=== PATIENT | female | born 1995 | race Caucasian/White ===

== ENCOUNTER 2021-07-18 09:09 | Emergency (ER) | payer OTHER ==
--- NOTE | 2021-07-18 09:40 | ERPHSYRPT ---
- History of Present Illness Time Seen by Provider: 07/18/21 09:27 Source: patient Exam Limitations: no limitations Physician History: The patient is a 26-year-old currently 6 weeks estimated gestational age with an LMP reportedly on June 01, 2021 and an estimated due date on March 09, 2022 presents with a chief complaint of vaginal bleeding. Onset reported this morning. She states that she wiped after using the bathroom and noticed that she had blood on the toilet paper while wiping. She has not had to use any pads or tampons to control the bleeding. She denies any abdominal pain, pelvic pain or cramping, purulent vaginal discharge, dysuria, increased urinary frequency or hesitancy, back pain, weakness or dizziness or syncope. She currently is on progesterone supplementation that was started this past Sunday given her past miscarriages x2. This is started by her SERVICE DEPARTMENT MANAGER doctor Samson. She called his clinic this morning and was told to come to the emergency department for further evaluation. Associated Symptoms: No nausea, No vomiting, No abdominal pain Allergies/Adverse Reactions: No Known Drug Allergies Allergy (Unverified 07/18/21 09:34) Home Medications: Levothyroxine Sodium 25 Mcg [Synthroid 25 Mcg] 1 tab PO DAILY 07/18/21 [History] - Review of Systems Constitutional: No Fever, No Chills Respiratory: No Symptoms Cardiac: No Symptoms Abdominal/Gastrointestinal: No Abdominal Pain, No Nausea, No Vomiting, No Diarrhea, No Hematemesis, No Hematochezia Genitourinary Symptoms: Vaginal Bleeding, No Dysuria, No Frequency, No Incontinence, No Urgency, No Urinary Retention, No Flank Pain, No Vaginal Discharge, No Vaginal Itching Musculoskeletal: No Symptoms Skin: No Symptoms Neurological: No Symptoms Psychological: No Symptoms Endocrine: No Symptoms Hematologic/Lymphatic: No Symptoms Immunological/Allergic: No Symptoms All Other Systems: Reviewed and Negative - Past Medical History Pertinent Past Medical History: Yes History: Other ( currently 6 weeks EGA) - Nursing Vital Signs Nursing Vital Signs: Initial Vital Signs Temperature 97.9 F 07/18/21 09:36 Pulse Rate 86 07/18/21 09:36 Respiratory Rate 18 07/18/21 09:36 Blood Pressure 131/68 07/18/21 09:36 O2 Sat by Pulse Oximetry 100 07/18/21 09:36 Pain Scale Pain Intensity 0 - Physical Exam General Appearance: no apparent distress, alert, obese Eye Exam: No scleral icterus Neck Exam: supple Respiratory Exam: normal breath sounds, chest tenderness, No lungs clear, No respiratory distress, No diminished breath sounds Cardiovascular Exam: regular rate/rhythm, normal heart sounds, No murmur, No fr iction rub, No gallop, No capillary refill <2 sec Gastrointestinal/Abdomen Exam: soft, No tenderness, No distention, No mass, No guarding, No rebound Pelvic Exam: deferred Rectal Exam: deferred Back Exam: normal inspection Extremity Exam: normal inspection Neurologic Exam: alert, oriented x 3, cooperative Skin Exam: normal color, warm, dry, No rash, No petechiae, No jaundice SpO2 Interpretation: normal O2 Delivery: Room Air - Course Nursing assessment & vital signs reviewed: Yes - Radiology Ultrasound Exam OB Ultrasound: Other (Single IUP with a single pole. heart rate 118 bpmPrevious tiny subchorionic hemorrhage appears smaller today measuring 1 x 2 x 3 mm. Cervix remains closed measuring 4 cm in length. Right and left ovaries unremarkable.) Ordered Tests: Active Orders 24 hr Category Date Time Status OB FOLLOW UP PER FETUS [US] Stat Exams 07/18/21 09:28 Completed BMP Stat Lab 07/18/21 09:45 Completed CULTURE,URINE Stat Lab 07/18/21 09:40 Received HCG, Quantitative (Inhouse) Stat Lab 07/18/21 09:00 Completed HCG,QUALITATIVE URINE Stat Lab 07/18/21 09:40 Completed UA W/RFX UR CULTURE Stat Lab 07/18/21 09:40 Completed Lab/Rad Data: Laboratory Result Diagrams 07/18/21 09:45 Laboratory Results 07/18/21 07/18/21 07/18/21 Range/Units 09:45 09:45 09:40 Sodium 138 (137-145) mmol/L Potassium 4.0 (3.5-5.1) mmol/L Chloride 101 (98-107) mmol/L Carbon Dioxide 26 (22-30) mmol/L Anion Gap 14.2 (5-15) MEQ/L BUN 8 (7-17) mg/dL Creatinine 0.58 (0.52-1.04) mg/dL Estimated GFR > 60.0 ML/MIN Glucose 118 H (74-106) mg/dL Calcium 9.4 (8.4-10.2) mg/dL Beta HCG, Quant mIU/ml Urine Color (YELLOW) Urine Appearance (CLEAR) Urine pH (5-6) Ur Specific [place] (1.005-1.025) Urine Protein (Negative) Urine Ketones (NEGATIVE) Urine Blood (0-5) Blair/ul Urine Nitrite (NEGATIVE) Urine Bilirubin (NEGATIVE) Urine Urobilinogen (0-1) mg/dL Ur Leukocyte Esterase (NEGATIVE) Urine WBC (Auto) (0-5) /HPF Urine RBC (Auto) (0-2) /HPF U Epithel Cells (Auto) (FEW) /HPF Urine Bacteria (Auto) (NEGATIVE) /HPF Urine Mucus (Auto) (NEGATIVE) /HPF Urine Culture Reflexed (NO) Urine Glucose (NEGATIVE) mg/dL Urine HCG, Qual POSITIVE (Negative) ABO Group O Rh Factor POSITIVE Antibody Screen NEGATIVE (NEGATIVE) 07/18/21 07/18/21 Range/Units 09:40 09:00 Sodium (137-145) mmol/L Potassium (3.5-5.1) mmol/L Chloride (98-107) mmol/L Carbon Dioxide (22-30) mmol/L Anion Gap (5-15) MEQ/L BUN (7-17) mg/dL Creatinine (0.52-1.04) mg/dL Estimated GFR ML/MIN Glucose (74-106) mg/dL Calcium (8.4-10.2) mg/dL Beta HCG, Quant 26371 mIU/ml Urine Color YELLOW (YELLOW) Urine Appearance SLIGHTLY CLOUDY (CLEAR) Urine pH 6.0 (5-6) Ur Specific [place] 1.023 (1.005-1.025) Urine Protein NEGATIVE (Negative) Urine Ketones NEGATIVE (NEGATIVE) Urine Blood LARGE (0-5) Blair/ul Urine Nitrite NEGATIVE (NEGATIVE) Urine Bilirubin NEGATIVE (NEGATIVE) Urine Urobilinogen NEGATIVE (0-1) mg/dL Ur Leukocyte Esterase NEGATIVE (NEGATIVE) Urine WBC (Auto) 0-2 (0-5) /HPF Urine RBC (Auto) 6-10 (0-2) /HPF U Epithel Cells (Auto) FEW (FEW) /HPF Urine Bacteria (Auto) FEW (NEGATIVE) /HPF Urine Mucus (Auto) SLIGHT (NEGATIVE) /HPF Urine Culture Reflexed YES (NO) Urine Glucose NEGATIVE (NEGATIVE) mg/dL Urine HCG, Qual (Negative) ABO Group Rh Factor Antibody Screen (NEGATIVE) - Progress Progress: improved Progress Note: 07/18/21 11:02 The patient was reassessed to find that she was in no obvious distress. She had no pain and no active bleeding at this time. I updated her with her work-up results and need to follow-up with Dr. Stark. She apparently has an appointment scheduled for July 21, 2021. ED return precautions for vaginal bleeding were given. Also, I attempted to contact Dr. Davies twice at his clinic however we can only get a busy signal 07/18/21 11:28 Samson called back and agrees with workup and d/c plan Discussed with : Deborah Counseled pt/family regarding: lab results, diagnosis, need for follow-up, rad results - Departure Departure Disposition: Home Clinical Impression: Vaginal bleeding during Condition: Stable Critical Care Time: No Referrals: BETTY ESQUIVEL NP [Primary Care Provider] - Instructions: Bleeding With (DC) Additional Instructions: Please take your medications as instructed or prescribed by your SERVICE DEPARTMENT MANAGER. Please follow-up with your SERVICE DEPARTMENT MANAGER for further evaluation and management.
[2021-07-18 10:02] LABS: Appearance SLIGHTLY CLOUDY (CLEAR); Bilirubin NEGATIVE (NEGATIVE); Blood LARGE Ery/ul (0-5); Glucose NEGATIVE (NEGATIVE); Ketones NEGATIVE (NEGATIVE); Leukocyte Esterase NEGATIVE (NEGATIVE); Nitrite NEGATIVE (NEGATIVE); Protein,Urine Dip NEGATIVE (Negative); Specific Gravity 1.023 (1.005-1.025); Urobilinogen NEGATIVE mg/dL (0-1)
[2021-07-18 10:06] LABS: ANION GAP 14.2 MEQ/L (5-15); BLOOD UREA NITROGEN 8 mg/dL (7-17); CHLORIDE 101 mmol/L (98-107); Calcium 9.4 mg/dL (8.4-10.2); Carbon Dioxide 26 mmol/L (22-30); Creatinine 1 0.58 mg/dL (0.52-1.04); EST GLOMERULAR FILTRATION RATE > 60.0 ML/MIN; Glucose 118 mg/dL (74-106); SODIUM 138 mmol/L (137-145)
--- NOTE | 2021-07-18 10:20 | XRAY ---
Indication: Spotting. Two-dimensional transvaginal early OB ultrasound performed. Comparison: July 13, 2021. Again single intrauterine with a single pole. Mean crown-rump length measures 0.75 cm corresponding to 6 weeks 5 days. heart rate 118 BPM. Previous tiny subchronic hemorrhage appears smaller today measuring 1 x 2 x 3 mm. Cervix remains closed measuring 4 cm in length. Tiny cul-de-sac fluid. Left and right ovary sonographically unremarkable. Impression: Again single viable intrauterine with mean gestational age 6 weeks 5 days. Normal progression of . Previous tiny subchorionic hemorrhage appears smaller.
[2021-07-18 10:21] LABS: Bacteria FEW /HPF (NEGATIVE); Epithelial Cells FEW /HPF (FEW); Mucus SLIGHT /HPF (NEGATIVE); WBC 0-2 /HPF (0-5)
[2021-07-18 10:36] LABS: ABO TYPING O; Antibody Screen NEGATIVE (NEGATIVE); RH TYPING POSITIVE
[2021-07-18 11:03] VITALS: O2SAT 98
[2021-07-18 11:19] VITALS: BP 103/70; PULSE 77
== END 2021-07-18 11:16 | disposition home or self-care (01) ==
LOC: ED 09:09
DX: O20.9 Hemorrhage in early pregnancy, unspecified (principal)
CPT/HCPCS: 36415; 76816; 80048; 81001; 84702; 84703; 86850; 86900; 86901; 87086; 99283

== ENCOUNTER 2021-08-31 22:03 | Emergency (ER) | payer OTHER ==
[2021-08-31 22:28] VITALS: O2SAT 98
[2021-08-31 22:51] LABS: Absolute Neutrophil Ct (ANC) 5.38 (1.4-6.9); BASOPHIL % 0.5 % (0.0-0.4); Basophil (Absolute #) 0.04 (0-0.4); Eosinophil (Absolute #) 0.17 (0-0.5); Hematocrit 39.3 % (35-47); Hemoglobin 13.2 gm/dl (12.0-16.0); Lymphocyte (Absolute #) 2.38 (1.0-4.6); Lymphocytes % 27.5 % (24.0-44.0); Mean Cell Volume 93.8 fl (78-100); Mean Corpuscular Hemoglobin 31.5 pg (26-32); Mean Corpuscular Hgb Concent. 33.6 g/dl (32-36); Mean Platelet Volume 10.2 fl (7.5-11.0); Monocyte (Absolute #) 0.68 (0.0-1.3); Monocytes % 7.9 % (0.0-12.0); Neutrophil % 62.1 % (36.0-66.0); Platelet Count 281 K/mm3 (150-450); Red Blood Count 4.19 M/mm3 (4.1-5.4); Red Cell Distribution Width 11.7 % (11.5-14.0); White Blood Count 8.7 K/mm3 (4.0-10.5)
[2021-08-31 22:57] LABS: Appearance CLEAR (CLEAR); Bacteria NONE SEEN /HPF (NEGATIVE); Bilirubin NEGATIVE (NEGATIVE); Blood NEGATIVE Ery/ul (0-5); Glucose NEGATIVE (NEGATIVE); Ketones NEGATIVE (NEGATIVE); Leukocyte Esterase NEGATIVE (NEGATIVE); Mucus SLIGHT /HPF (NEGATIVE); Nitrite NEGATIVE (NEGATIVE); Protein,Urine Dip NEGATIVE (Negative); Specific Gravity 1.015 (1.005-1.025); Urobilinogen NEGATIVE mg/dL (0-1)
[2021-08-31 23:03] LABS: ALBUMIN 4.1 g/dL (3.5-5.0); ALKALINE PHOSPHATASE 43 U/L (38-126); BLOOD UREA NITROGEN 11 mg/dL (7-17); CHLORIDE 105 mmol/L (98-107); Calcium 9.1 mg/dL (8.4-10.2); Carbon Dioxide 22 mmol/L (22-30); Creatinine 1 0.58 mg/dL (0.52-1.04); EST GLOMERULAR FILTRATION RATE > 60.0 ML/MIN; Glucose 85 mg/dL (74-106); Potassium 4.6 mmol/L (3.5-5.1); SGOT/AST 20 U/L (14-36); SGPT/ALT 33 U/L (0-35); SODIUM 137 mmol/L (137-145); Total Protein 6.7 g/dL (6.3-8.2)
[2021-08-31 23:06] VITALS: BP 130/66; PULSE 81
--- NOTE | 2021-08-31 23:06 | ERPHSYRPT ---
- History of Present Illness Time Seen by Provider: 08/31/21 22:30 Source: patient Exam Limitations: no limitations Patient Subjective Stated Complaint: " I noticed some blood on the toliet paper when I wipe after peeing, I am 13 weeks and high risk so my OB advised me to come to the ER if I experienced bleeding. I had two previous miscarriages before. Triage Nursing Assessment: Pt presents to ER with complaints of vaginal bleeding that began today at 1200. Pt states she is 13 weeks gestation . Pt states has been 3 times, 2 resulting in miscarriage and this being her 3rd . Pt states that she noticed some mild blood after wiping following urination today. Pt states blood was light pink in color. Pt is alert and oriented x3. Pt skin is pink, warm, and dry. Pt respirations are unlabored at this time. Pt denies any pain. Pt denies nausea, vomiting, or diarrhea. Pt does state she had intercourse this morning, denies any pain or bleeding during or following that. Physician History: Patient is a 26-year-old female currently 13 weeks presents to our ED with complaints of vaginal bleeding. Patient states her MEDICAL SOCIAL WORKER physician advised her to come to our ED if she experiences vaginal bleeding. Patient states that she has had 2 previous miscarriages. 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 She was at home wiped and observe the blood-tinged toilet paper. No active bleeding no cramping. No abdominal pain. No nausea or vomiting. No trauma. No fever. Symptoms are mild to moderate in intensity. No specific worsening improving factors. Patient is otherwise healthy. She is not sure why she had previous miscarriages. Patient voices no other complaints or concerns at this time. Timing/Duration: today Severity: mild Modifying Factors: Improves With: nothing Associated Symptoms: denies symptoms Allergies/Adverse Reactions: No Known Drug Allergies Allergy (Verified 08/31/21 22:28) Home Medications: Levothyroxine Sodium 25 Mcg [Synthroid 25 Mcg] 1 tab PO DAILY 07/18/21 [History] Aspirin 81 gm Chew [Baby Aspirin 81 mg Chew] 2 tab PO DAILY 08/31/21 [History] Pnv No.95/Ferrous Fum/Folic AC [ Caplet] 2 cap PO DAILY 08/31/21 [History] Hx Tetanus, Diphtheria Vaccination/Date Given: Yes Hx Influenza Vaccination/Date Given: Yes Hx Pneumococcal Vaccination/Date Given: No Immunizations Up to Date: Yes Travel Risk - International Travel Have you traveled outside of the country in past 3 weeks: No - Coronavirus Screening Are you exhibiting any of the following symptoms?: No Close contact with a COVID-19 positive Pt in past 14-21 Days: No - Vaccine Status Have you recieved a Covid-19 vaccination: No - Review of Systems Constitutional: No Symptoms, No Fever, No Chills Eyes: No Symptoms Ears, Nose, & Throat: No Symptoms Respiratory: No Symptoms, No Cough, No Dyspnea Cardiac: No Symptoms, No Chest Pain, No Edema, No Syncope Abdominal/Gastrointestinal: No Symptoms, No Abdominal Pain, No Nausea, No Vomiting, No Diarrhea Genitourinary Symptoms: No Symptoms, No Dysuria Musculoskeletal: No Symptoms, No Back Pain, No Neck Pain Skin: No Symptoms, No Rash Neurological: No Symptoms, No Dizziness, No Focal Weakness, No Sensory Changes Psychological: No Symptoms Endocrine: No Symptoms Hematologic/Lymphatic: No Symptoms Immunological/Allergic: No Symptoms All Other Systems: Reviewed and Negative - Past Medical History Pertinent Past Medical History: Yes Neurological History: No Pertinent History ENT History: No Pertinent History Cardiac History: No Pertinent History Respiratory History: No Pertinent History Musculoskeletal History: No Pertinent History GI Medical History: No Pertinent History History: Other Psycho-Social History: No Pertinent History Female Reproductive Disorders: No Pertinent History Other Medical History: - Past Surgical History Past Surgical History: Yes Neuro Surgical History: No Pertinent History Cardiac: No Pertinent History Respiratory: No Pertinent History Gastrointestinal: No Pertinent History Genitourinary: No Pertinent History Musculoskeletal: No Pertinent History Female Surgical History: Dilation & Curettage - Social History Smoking Status: Never smoker Exposure to second hand smoke: No Drug Use: none Patient Lives Alone: No - Female History Hx Last Menstrual Period: 06/01/2021 Hx Now: Yes Expected Date of Delivery: 03/08/22 Gestational Age: 13 weeks - Nursing Vital Signs Nursing Vital Signs: Initial Vital Signs Temperature 97.7 F 08/31/21 22:19 Pulse Rate 91 H 08/31/21 22:19 Respiratory Rate 16 08/31/21 22:19 Blood Pressure 131/88 08/31/21 22:19 O2 Sat by Pulse Oximetry 98 12/15/21 22:19 Pain Scale Pain Intensity 0 - Physical Exam General Appearance: no apparent distress, alert Eye Exam: PERRL/EOMI, eyes nml inspection Ears, Nose, Throat Exam: normal ENT inspection, TMs normal, pharynx normal, moist mucous membranes Neck Exam: normal inspection, non-tender, supple, full range of motion Respiratory Exam: normal breath sounds, lungs clear, airway intact, No respiratory distress, No accessory muscle use, No crackles/rales, No wheezing Cardiovascular Exam: regular rate/rhythm, normal heart sounds, normal peripheral pulses Gastrointestinal/Abdomen Exam: soft, normal bowel sounds, No tenderness, No mass Pelvic Exam: normal external exam, vaginal discharge (Scant white vaginal discharge.), other (Closed cervical os), No adnexal mass, No cervical motion tenderness, No vaginal bleeding, No uterine tenderness Back Exam: normal inspection, normal range of motion, No CVA tenderness, No vertebral tenderness Extremity Exam: normal inspection, normal range of motion, pelvis stable Neurologic Exam: alert, oriented x 3, cooperative, normal mood/affect, sensation nml, No motor deficits Skin Exam: normal color, warm, dry, No rash Lymphatic Exam: No adenopathy SpO2 Interpretation: normal SpO2: 98 O2 Delivery: Room Air - Course Nursing assessment & vital signs reviewed: Yes - Radiology Ultrasound Exam OB Ultrasound: discussed w/radiologist (Per table cut off saw operator heart rate is 152. Ultrasound otherwise negative.) Ordered Tests: Active Orders 24 hr Category Date Time Status OB FOLLOW UP PER FETUS [US] Stat Exams 08/31/21 22:28 Taken CBC W DIFF Stat Lab 08/31/21 22:48 Completed CMP Stat Lab 08/31/21 22:48 Completed HCG, Quantitative (Inhouse) Stat Lab 08/31/21 22:48 Received UA W/RFX UR CULTURE Stat Lab 08/31/21 22:33 Completed Wet Prep Stat Lab 08/31/21 23:00 Completed Lab/Rad Data: Laboratory Result Diagrams 08/31/21 22:48 08/31/21 22:48 Laboratory Results 08/31/21 08/31/21 08/31/21 Range/Units 23:00 22:48 22:48 WBC 8.7 (4.0-10.5) K/mm3 RBC 4.19 (4.1-5.4) M/mm3 Hgb 13.2 (12.0-16.0) gm/dl Hct 39.3 (35-47) % MCV 93.8 (78-100) fl MCH 31.5 (26-32) pg MCHC 33.6 (32-36) g/dl RDW 11.7 (11.5-14.0) % Plt Count 281 (150-450) K/mm3 MPV 10.2 (7.5-11.0) fl Gran % 62.1 (36.0-66.0) % Eos # (Auto) 0.17 (0-0.5) Absolute Lymphs (auto) 2.38 (1.0-4.6) Absolute Monos (auto) 0.68 (0.0-1.3) Lymphocytes % 27.5 (24.0-44.0) % Monocytes % 7.9 (0.0-12.0) % Eosinophils % 2.0 (0.00-5.0) % Basophils % 0.5 (0.0-0.4) % Absolute Granulocytes 5.38 (1.4-6.9) Basophils # 0.04 (0-0.4) Sodium 137 (137-145) mmol/L Potassium 4.6 (3.5-5.1) mmol/L Chloride 105 (98-107) mmol/L Carbon Dioxide 22 (22-30) mmol/L Anion Gap 14.0 (5-15) MEQ/L BUN 11 (7-17) mg/dL Creatinine 0.58 (0.52-1.04) mg/dL Estimated GFR > 60.0 ML/MIN Glucose 85 (74-106) mg/dL Calcium 9.1 (8.4-10.2) mg/dL Total Bilirubin 0.30 (0.2-1.3) mg/dL AST 20 (14-36) U/L ALT 33 (0-35) U/L Alkaline Phosphatase 43 (38-126) U/L Serum Total Protein 6.7 (6.3-8.2) g/dL Albumin 4.1 (3.5-5.0) g/dL Urine Color (YELLOW) Urine Appearance (CLEAR) Urine pH (5-6) Ur Specific [place] (1.005-1.025) Urine Protein (Negative) Urine Ketones (NEGATIVE) Urine Blood (0-5) Blair/ul Urine Nitrite (NEGATIVE) Urine Bilirubin (NEGATIVE) Urine Urobilinogen (0-1) mg/dL Ur Leukocyte Esterase (NEGATIVE) Urine WBC (Auto) (0-5) /HPF Urine RBC (Auto) (0-2) /HPF U Epithel Cells (Auto) (FEW) /HPF Urine Bacteria (Auto) (NEGATIVE) /HPF Urine Mucus (Auto) (NEGATIVE) /HPF Urine Culture Reflexed (NO) Urine Glucose (NEGATIVE) mg/dL WBC (Wet Prep) Few RBC (Wet Prep) Few Epi Cells (Wet Prep) Moderate Bacteria (Wet Prep) Moderate Clue Cells (Wet Prep) Rare Trichomonas (Wet Prep) None Seen Budding Yeast (Wet Prp) None Seen 08/31/21 Range/Units 22:33 WBC (4.0-10.5) K/mm3 RBC (4.1-5.4) M/mm3 Hgb (12.0-16.0) gm/dl Hct (35-47) % MCV (78-100) fl MCH (26-32) pg MCHC (32-36) g/dl RDW (11.5-14.0) % Plt Count (150-450) K/mm3 MPV (7.5-11.0) fl Gran % (36.0-66.0) % Eos # (Auto) (0-0.5) Absolute Lymphs (auto) (1.0-4.6) Absolute Monos (auto) (0.0-1.3) Lymphocytes % (24.0-44.0) % Monocytes % (0.0-12.0) % Eosinophils % (0.00-5.0) % Basophils % (0.0-0.4) % Absolute Granulocytes (1.4-6.9) Basophils # (0-0.4) Sodium (137-145) mmol/L Potassium (3.5-5.1) mmol/L Chloride (98-107) mmol/L Carbon Dioxide (22-30) mmol/L Anion Gap (5-15) MEQ/L BUN (7-17) mg/dL Creatinine (0.52-1.04) mg/dL Estimated GFR ML/MIN Glucose (74-106) mg/dL Calcium (8.4-10.2) mg/dL Total Bilirubin (0.2-1.3) mg/dL AST (14-36) U/L ALT (0-35) U/L Alkaline Phosphatase (38-126) U/L Serum Total Protein (6.3-8.2) g/dL Albumin (3.5-5.0) g/dL Urine Color YELLOW (YELLOW) Urine Appearance CLEAR (CLEAR) Urine pH 6.0 (5-6) Ur Specific [place] 1.015 (1.005-1.025) Urine Protein NEGATIVE (Negative) Urine Ketones NEGATIVE (NEGATIVE) Urine Blood NEGATIVE (0-5) Blair/ul Urine Nitrite NEGATIVE (NEGATIVE) Urine Bilirubin NEGATIVE (NEGATIVE) Urine Urobilinogen NEGATIVE (0-1) mg/dL Ur Leukocyte Esterase NEGATIVE (NEGATIVE) Urine WBC (Auto) NONE (0-5) /HPF Urine RBC (Auto) NONE (0-2) /HPF U Epithel Cells (Auto) NONE (FEW) /HPF Urine Bacteria (Auto) NONE SEEN (NEGATIVE) /HPF Urine Mucus (Auto) SLIGHT (NEGATIVE) /HPF Urine Culture Reflexed NO (NO) Urine Glucose NEGATIVE (NEGATIVE) mg/dL WBC (Wet Prep) RBC (Wet Prep) Epi Cells (Wet Prep) Bacteria (Wet Prep) Clue Cells (Wet Prep) Trichomonas (Wet Prep) Budding Yeast (Wet Prp) - Progress Progress: improved Progress Note: Patient reassessed. She feels well. No vaginal bleeding. Pelvic exam showed a closed cervical os. Ultrasound shows a heart rate of 152. Otherwise negative. No active bleeding. Case discussed with who agrees with disposition. GC chlamydia pending. We will call patient at home with the results if positive. Patient voices no other complaints concerns. Patient that she is ready for discharge. Patient agrees to follow-up with her MEDICAL SOCIAL WORKER physician within 48 hours for reevaluation. Portions of this note were created with voice recognition technology. There may be grammatical, spelling, punctuation or sound alike errors 08/31/21 23:38 08/31/21 23:[address] Deborah Will see patient in: office Counseled pt/family regarding: lab results, diagnosis, need for follow-up, rad results - Departure Departure Disposition: Home Clinical Impression: Threatened miscarriage Condition: Stable Critical Care Time: No Referrals: KRISTYN EDGAR DO [Primary Care Provider] - Follow up/PCP as directed Additional Instructions: Discharge/Care Plan FEDE CHAVEZ was seen on 08/31/21 in the Emergency Room. The patient was counseled regarding Diagnosis,Lab results, Imaging studies, need for follow up and when to return to the Emergency Room. Prescriptions given: Discharge Note I have spoken with the patient and/or caregivers. I have explained the patient's condition, diagnosis and treatment plan based on the information available to me at this time. I have answered the patient's and/or caregiver's questions and addressed any concerns. The patient and/or caregivers have as good understanding of the patient's diagnosis, condition and treatment plan as can be expected at this point. The vital signs have been stable. The patient's condition is stable and appropriate for discharge from the emergency department. The patient will pursue further outpatient evaluation with the primary care physician or other designated or consulting physician as outlined in the discharge instructions. The patient and/or caregivers are agreeable to this plan of care and follow-up instructions have been explained in detail. The patient and/or caregivers have received these instruction. The patient/and or caregivers are aware that any significant change in condition or worsening of symptoms should prompt an immediate return to this or the closest emergency department or call 911.
[2021-08-31 23:17] LABS: Bacteria Moderate; Clue Cells Rare; Red Blood Cells Few; Trichomonas None Seen; White Blood Cells Few; Yeast None Seen
[2021-09-01 00:34] LABS: CHLAMYDIA DNA NOT DETECTED (NEGATIVE); GC DNA Probe NOT DETECTED (NEGATIVE)
--- NOTE | 2021-09-01 08:48 | XRAY ---
Indication: Spotting. Limited transabdominal early OB ultrasound performed. Comparison: July 18, 2021. Again single intrauterine with mean crown-rump length 7.10 cm corresponding to 13 weeks 2 days. heart rate 152 BPM. No abnormal subchorionic fluid. Right ovary sonographically unremarkable. Left ovary not seen. No suspicious adnexal mass or free fluid. Impression: Again single viable intrauterine measuring 13 weeks 2 days. Normal progression of . No new/acute abnormalities. Comment: Preliminary report was given.
== END 2021-08-31 23:50 | disposition home or self-care (01) ==
LOC: ED 22:03
DX: O20.0 Threatened abortion (principal); Z3A.13 13 weeks gestation of pregnancy
CPT/HCPCS: 36415; 76816; 80053; 81001; 84702; 85025; 87210; 87491; 87591; 99284

== ENCOUNTER 2021-09-23 22:15 | Emergency (ER) | payer OTHER ==
--- NOTE | 2021-09-23 22:19 | ERPHSYRPT ---
- History of Present Illness Time Seen by Provider: 09/23/21 22:18 Source: patient Exam Limitations: no limitations Physician History: This 26-year-old white female who is 16 weeks and has ultrasound verified single intrauterine fetus, and presents with vaginal bleeding that occurred throughout the day today. It was more than spotting. She does not have significant pain. Patient is A2. Patient had spontaneous miscarriages at 6 weeks and 9 weeks gestation in the past. Timing/Duration: today Activites at Onset: none Quality: other (No significant abdominal pain) Severity of Pain-Max: none Severity of Pain-Current: none Sexual intercourse history: non-contributory Modifying Factors: Improves With: nothing Associated Symptoms: vaginal discharge (Dark blood) Allergies/Adverse Reactions: No Known Drug Allergies Allergy (Verified 09/23/21 22:23) Home Medications: Levothyroxine Sodium 25 Mcg [Synthroid 25 Mcg] 1 tab PO DAILY 07/18/21 [History] Aspirin 81 gm Chew [Baby Aspirin 81 mg Chew] 2 tab PO DAILY 08/31/21 [History] Pnv No.95/Ferrous Fum/Folic AC [ Caplet] 2 cap PO DAILY 08/31/21 [History] Hx Tetanus, Diphtheria Vaccination/Date Given: Yes Hx Influenza Vaccination/Date Given: Yes Hx Pneumococcal Vaccination/Date Given: No Travel Risk - International Travel Have you traveled outside of the country in past 3 weeks: No - Coronavirus Screening Are you exhibiting any of the following symptoms?: No Close contact with a COVID-19 positive Pt in past 14-21 Days: No - Vaccine Status Have you recieved a Covid-19 vaccination: No - Review of Systems Constitutional: No Symptoms Eyes: No Symptoms Ears, Nose, & Throat: No Symptoms Respiratory: No Symptoms Cardiac: No Symptoms Abdominal/Gastrointestinal: No Symptoms Genitourinary Symptoms: Vaginal Bleeding Musculoskeletal: No Symptoms Skin: No Symptoms Neurological: No Symptoms Psychological: No Symptoms Endocrine: No Symptoms Hematologic/Lymphatic: No Symptoms Immunological/Allergic: No Symptoms All Other Systems: Reviewed and Negative - Past Medical History Pertinent Past Medical History: Yes Neurological History: No Pertinent History ENT History: No Pertinent History Cardiac History: No Pertinent History Respiratory History: No Pertinent History Musculoskeletal History: No Pertinent History GI Medical History: No Pertinent History History: Other Psycho-Social History: No Pertinent History Female Reproductive Disorders: No Pertinent History Other Medical History: - Past Surgical History Past Surgical History: Yes Neuro Surgical History: No Pertinent History Cardiac: No Pertinent History Respiratory: No Pertinent History Gastrointestinal: No Pertinent History Genitourinary: No Pertinent History Musculoskeletal: No Pertinent History Female Surgical History: Dilation & Curettage - Social History Smoking Status: Never smoker Exposure to second hand smoke: No Drug Use: none Patient Lives Alone: No - Nursing Vital Signs Nursing Vital Signs: Initial Vital Signs Temperature 98.6 F 09/23/21 22:24 Pulse Rate 93 H 09/23/21 22:24 Respiratory Rate 18 09/23/21 22:24 Blood Pressure 138/82 09/23/21 22:24 O2 Sat by Pulse Oximetry 99 09/23/21 22:24 Pain Scale Pain Intensity 0 - Physical Exam General Appearance: no apparent distress, alert, anxiety Eye Exam: PERRL/EOMI, eyes nml inspection Ears, Nose, Throat Exam: normal ENT inspection, moist mucous membranes Neck Exam: normal inspection, non-tender, supple, full range of motion Respiratory Exam: normal breath sounds, lungs clear, airway intact, No chest tenderness, No respiratory distress Cardiovascular Exam: regular rate/rhythm, normal heart sounds, normal peripheral pulses Gastrointestinal/Abdomen Exam: soft, normal bowel sounds ( abdomen), other ( heart tones mid 170s beats per minute) Pelvic Exam: not done Rectal Exam: not done Back Exam: normal inspection, normal range of motion, No CVA tenderness, No vertebral tenderness Extremity Exam: normal inspection, normal range of motion, pelvis stable Neurologic Exam: alert, oriented x 3, cooperative, digital imaging technician II-XII nml as tested, normal mood/affect, nml cerebellar function, nml station & gait, sensation nml, motor weakness Skin Exam: normal color, warm, dry Lymphatic Exam: adenopathy SpO2 Interpretation: normal O2 Delivery: Room Air - Course Nursing assessment & vital signs reviewed: Yes Ordered Tests: Active Orders 24 hr Category Date Time Status IV Insertion STAT Care 09/23/21 22:22 Active CBC W DIFF Stat Lab 09/23/21 22:41 Completed CMP Stat Lab 09/23/21 22:41 Completed UA W/RFX UR CULTURE Stat Lab 09/23/21 22:24 Completed Lab/Rad Data: Laboratory Result Diagrams 09/23/21 22:41 09/23/21 22:41 Laboratory Results 09/23/21 09/23/21 09/23/21 Range/Units 22:41 22:41 22:24 WBC 9.2 (4.0-10.5) K/mm3 RBC 4.22 (4.1-5.4) M/mm3 Hgb 13.6 (12.0-16.0) gm/dl Hct 39.1 (35-47) % MCV 92.7 (78-100) fl MCH 32.2 H (26-32) pg MCHC 34.8 (32-36) g/dl RDW 11.8 (11.5-14.0) % Plt Count 277 (150-450) K/mm3 MPV 10.7 (7.5-11.0) fl Gran % 69.0 H (36.0-66.0) % Eos # (Auto) 0.19 (0-0.5) Absolute Lymphs (auto) 1.99 (1.0-4.6) Absolute Monos (auto) 0.64 (0.0-1.3) Lymphocytes % 21.7 L (24.0-44.0) % Monocytes % 7.0 (0.0-12.0) % Eosinophils % 2.1 (0.00-5.0) % Basophils % 0.2 (0.0-0.4) % Absolute Granulocytes 6.32 (1.4-6.9) Basophils # 0.02 (0-0.4) Sodium 139 (137-145) mmol/L Potassium 3.6 (3.5-5.1) mmol/L Chloride 104 (98-107) mmol/L Carbon Dioxide 25 (22-30) mmol/L Anion Gap 13.2 (5-15) MEQ/L BUN 10 (7-17) mg/dL Creatinine 0.50 L (0.52-1.04) mg/dL Estimated GFR > 60.0 ML/MIN Glucose 102 (74-106) mg/dL Calcium 9.5 (8.4-10.2) mg/dL Total Bilirubin 0.30 (0.2-1.3) mg/dL AST 15 (14-36) U/L ALT 19 (0-35) U/L Alkaline Phosphatase 58 (38-126) U/L Serum Total Protein 7.1 (6.3-8.2) g/dL Albumin 4.4 (3.5-5.0) g/dL Urine Color STRAW (YELLOW) Urine Appearance CLEAR (CLEAR) Urine pH 6.0 (5-6) Ur Specific Regina 1.009 (1.005-1.025) Urine Protein NEGATIVE (Negative) Urine Ketones NEGATIVE (NEGATIVE) Urine Blood MODERATE (0-5) Blair/ul Urine Nitrite NEGATIVE (NEGATIVE) Urine Bilirubin NEGATIVE (NEGATIVE) Urine Urobilinogen NEGATIVE (0-1) mg/dL Ur Leukocyte Esterase NEGATIVE (NEGATIVE) Urine WBC (Auto) 0-2 (0-5) /HPF Urine RBC (Auto) 0-2 (0-2) /HPF U Epithel Cells (Auto) RARE (FEW) /HPF Urine Bacteria (Auto) RARE (NEGATIVE) /HPF Urine Mucus (Auto) SLIGHT (NEGATIVE) /HPF Urine Culture Reflexed NO (NO) Urine Glucose 50 (NEGATIVE) mg/dL - Progress Progress: improved Air Movement: good Progress Note: 09/23/21 22:59 Medical decision making: I spoke with Dr. Davies, the patient's production staff worker. He stated there is not much to do for this patient. Patient's vital signs are stable. Her hemoglobin is normal. Her urinalysis shows no evidence of infection. He told me to tell her to rest. It does not have to be complete bedrest. In addition patient is not to engage in any sexual intercourse. Blood Culture(s) Obtained: No Antibiotics given: No Counseled pt/family regarding: lab results, diagnosis, need for follow-up - Departure Departure Disposition: Home Clinical Impression: Second trimester bleeding Condition: Stable Critical Care Time: No Referrals: KRISTYN DAVIES DO [Primary Care Provider] - Follow up/PCP as directed Additional Instructions: Rest for several days. No excessive activity. Do not engage in sexual intercourse until after you are evaluated by your production staff worker. Call your production staff worker's office on 09/26/2021 to make arrangements for an appointment for next week.
[2021-09-23 22:44] LABS: Absolute Neutrophil Ct (ANC) 6.32 (1.4-6.9); Basophil (Absolute #) 0.02 (0-0.4); Eosinophil % 2.1 % (0.00-5.0); Eosinophil (Absolute #) 0.19 (0-0.5); Hematocrit 39.1 % (35-47); Hemoglobin 13.6 gm/dl (12.0-16.0); Lymphocyte (Absolute #) 1.99 (1.0-4.6); Lymphocytes % 21.7 % (24.0-44.0); Mean Cell Volume 92.7 fl (78-100); Mean Corpuscular Hemoglobin 32.2 pg (26-32); Mean Corpuscular Hgb Concent. 34.8 g/dl (32-36); Mean Platelet Volume 10.7 fl (7.5-11.0); Monocyte (Absolute #) 0.64 (0.0-1.3); Platelet Count 277 K/mm3 (150-450); Red Blood Count 4.22 M/mm3 (4.1-5.4); Red Cell Distribution Width 11.8 % (11.5-14.0); White Blood Count 9.2 K/mm3 (4.0-10.5)
[2021-09-23 22:51] LABS: ALBUMIN 4.4 g/dL (3.5-5.0); ALKALINE PHOSPHATASE 58 U/L (38-126); ANION GAP 13.2 MEQ/L (5-15); BLOOD UREA NITROGEN 10 mg/dL (7-17); CHLORIDE 104 mmol/L (98-107); Calcium 9.5 mg/dL (8.4-10.2); Carbon Dioxide 25 mmol/L (22-30); EST GLOMERULAR FILTRATION RATE > 60.0 ML/MIN; Glucose 102 mg/dL (74-106); Potassium 3.6 mmol/L (3.5-5.1); SGOT/AST 15 U/L (14-36); SGPT/ALT 19 U/L (0-35); SODIUM 139 mmol/L (137-145); Total Protein 7.1 g/dL (6.3-8.2)
[2021-09-23 22:52] LABS: Appearance CLEAR (CLEAR); Bacteria RARE /HPF (NEGATIVE); Bilirubin NEGATIVE (NEGATIVE); Blood MODERATE Ery/ul (0-5); Epithelial Cells RARE /HPF (FEW); Glucose 50 mg/dL (NEGATIVE); Ketones NEGATIVE (NEGATIVE); Leukocyte Esterase NEGATIVE (NEGATIVE); Mucus SLIGHT /HPF (NEGATIVE); Nitrite NEGATIVE (NEGATIVE); Protein,Urine Dip NEGATIVE (Negative); RBC 0-2 /HPF (0-2); Specific Gravity 1.009 (1.005-1.025); Urobilinogen NEGATIVE mg/dL (0-1); WBC 0-2 /HPF (0-5)
[2021-09-23 23:16] VITALS: BP 130/80; PULSE 86; O2SAT 98
== END 2021-09-23 23:15 | disposition home or self-care (01) ==
LOC: ED 22:15
DX: O20.9 Hemorrhage in early pregnancy, unspecified (principal); Z3A.16 16 weeks gestation of pregnancy
CPT/HCPCS: 36000; 36415; 80053; 81001; 85025; 99284

== ENCOUNTER 2021-11-09 08:29 | Observation (INO) | payer OTHER ==
[2021-11-09 10:00] LABS: ALBUMIN 3.7 g/dL (3.5-5.0); ALKALINE PHOSPHATASE 49 U/L (38-126); ANION GAP 12.9 MEQ/L (5-15); BLOOD UREA NITROGEN 9 mg/dL (7-17); CHLORIDE 105 mmol/L (98-107); Calcium 8.9 mg/dL (8.4-10.2); Carbon Dioxide 24 mmol/L (22-30); Creatinine 1 0.49 mg/dL (0.52-1.04); EST GLOMERULAR FILTRATION RATE > 60.0 ML/MIN; Glucose 122 mg/dL (74-106); Potassium 3.6 mmol/L (3.5-5.1); SGOT/AST 14 U/L (14-36); SGPT/ALT 19 U/L (0-35); SODIUM 138 mmol/L (137-145); Total Protein 6.6 g/dL (6.3-8.2); Uric Acid 2.1 mg/dL (2.6-6.0)
[2021-11-09 10:06] VITALS: PULSE 88; O2SAT 99
[2021-11-09 12:00] VITALS: BP 124/66
[2021-11-09 12:08] LABS: Amphetamine,Urine NEGATIVE (NEGATIVE); Barbiturate,Urine NEGATIVE (NEGATIVE); Benzodiazepine,Urine NEGATIVE (NEGATIVE); Cocaine,Urine NEGATIVE (NEGATIVE); Methadone,Urine NEGATIVE (NEGATIVE); Opiate,Urine NEGATIVE (NEGATIVE); PCP,Urine NEGATIVE (NEGATIVE); THC,Urine NEGATIVE (NEGATIVE)
[2021-11-09 12:25] LABS: Hematocrit 35.7 % (35-47); Mean Corpuscular Hemoglobin 32.3 pg (26-32); Mean Corpuscular Hgb Concent. 33.6 g/dl (32-36); Mean Platelet Volume 11.1 fl (7.5-11.0); Platelet Count 231 K/mm3 (150-450); Red Blood Count 3.72 M/mm3 (4.1-5.4); Red Cell Distribution Width 12.3 % (11.5-14.0); White Blood Count 10.1 K/mm3 (4.0-10.5)
[2021-11-09 13:11] LABS: Creatinine, Urine Random 130.6 mg/dl
[2021-11-09 13:41] LABS: Eosinophil 2 % (0.00-3.0); Lymphocytes 19 % (24-44); Monocyte 6 % (0.0-12.0); Neutrophils 73 % (36.0-66.0); Total Cells Counted 100
[2021-11-09 13:50] LABS: Platelet Estimate NORMAL (NORMAL)
== END 2021-11-09 11:15 | disposition home or self-care (01) ==
LOC: WHC 08:29 → MED SURG 09:18 → UNDOADMOB 09:18 → UNDODISOB 11:15
PROVIDERS: ADMIT Obstetrics & Gynecology; ATTEND Obstetrics & Gynecology
DX: O13.2 Gestational [pregnancy-induced] hypertension without significant proteinuria, second trimester (principal); Z3A.23 23 weeks gestation of pregnancy
CPT/HCPCS: 36415; 59426; 80053; 80307; 81002; 82570; 84156; 84550; 85025; G0378